=== PATIENT | female | born 1965 | race African-American/Black ===

== ENCOUNTER 2019-11-28 16:17 | Emergency (ER) | payer OTHER ==
[2019-11-28] MEDS ORDERED: Metoclopramide HCl 10 MG/2 ML VIAL ONE (17:02)
[2019-11-28] MEDS ORDERED: diphenhydrAMINE 50 MG/ML VIAL ONE (17:02)
--- NOTE | 2019-11-28 18:06 | CT ---
CT BRAIN WITHOUT CONTRAST: Date: 11/28/19 HISTORY: Headache. FINDINGS: No evidence of acute infarct, hemorrhage, midline shift, or abnormal extra-axial fluid collections ar e seen. The ventricular size is normal and the basilar cisterns are patent. The bony calvarium is int act. There is a small amount of fluid in the left sphenoid sinus. IMPRESSION: 1. No CT evidence of acute intracranial process. 2. Left sphenoid sinusitis. POS: [facility]
== END 2019-11-28 19:17 | disposition home or self-care (01) ==
LOC: ERS 16:17
DX: R51 Headache (principal); I10 Essential (primary) hypertension; I48.91 Unspecified atrial fibrillation; J45.909 Unspecified asthma, uncomplicated; F41.9 Anxiety disorder, unspecified; F32.9 Major depressive disorder, single episode, unspecified; F17.210 Nicotine dependence, cigarettes, uncomplicated
CPT/HCPCS: 70450; 96365; 96375; J1200; J2765